=== PATIENT | female | born 1965 | race Caucasian/White ===

== ENCOUNTER 2022-07-27 00:20 | Inpatient (IN) | payer MEDICARE, MEDICAID, SELFPAY ==
[2022-07-27] VITALS (21 sets, daily range): BP systolic 125–196; BP diastolic 68–115; PULSE 24–108; RESP 15–108; TEMP 34.6–37; O2SAT 90–96
--- NOTE | 2022-07-27 00:23 | P.HP_ITS ---
Providers/Chief Complaint Admitting Physician: Cathy Ayala MD Chief Complaint: L hip fx History of Present Illness Estela Reilly is a 56 year old female who recently got treated for pneumonia, has been having recurrent falls, she does have a 24-hour caregiver, she has history of intellectual disability, bipolar disorder, type 2 diabetes, hypothyroidism, transferred from [facility] for left hip fracture. Dr. Porter has accepted the patient and asked hospitalist service to admit. At the time of my evaluation patient is hypertensive, complaining of pain in her left hip, patient is stating that she used 2 L of oxygen. Labs, imaging report reviewed Left intertrochanteric hip fracture Patient has a Marshall catheter in place Review of Systems General: Reports: ROS unobtainable due to medical condition PFSH Acute PFSH: Medical History Bipolar 1 disorder Epilepsy GERD (gastroesophageal reflux disease) Hypothyroidism Intellectual disability Psoriasis Rheumatoid arthritis Type 2 diabetes mellitus Family History Denies family history of CAD (coronary artery disease) Social History Smoking and tobacco status: never smoked Alcohol intake: never Physical Exam Narrative: female, Ecchymosis left periorbital area, left maxillary area No active bleeding Patient is moving her upper extremities Essential tremors Left leg is rotated outwards, sharp Marshall catheter in place Abdomen soft, nondistended S1, S2 Currently on 2 L of oxygen Hypertensive A&P Assessment and plan (1) Hip fracture: Plan Left hip fracture N.p.o. DVT prophylaxis SCDs Opioids and bowel regimen Dr. 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
[2022-07-27] MEDS: hyDRALAzine 20 mg/mL INJ 1 mL 5 MG IVP (01:28)
[2022-07-27] MEDS: HYDROmorphone 1 mg/mL INJ 1 mL 0.4 MG IVP (01:29)
[2022-07-27] MEDS: sodium chloride 0.9% 1,000 ML 75 ML IV ×2 (02:02→14:56)
[2022-07-27] MEDS: morphine IR 15 mg Tablet PO (05:03)
[2022-07-27] MEDS: levothyroxine 100 mcg Tablet PO (05:03)
[2022-07-27 05:23] LABS: Basophils % 0.4 %; Eosinophils # 0.1 10^3/uL (0.0-0.8); Hematocrit 33.7 % (37.0-47.0); Hemoglobin 10.7 g/dL (11.5-15.3); Lymphocytes # 1.3 10^3/uL (0.8-4.8); Lymphocytes % 12.8 %; Mean Corpuscular HGB Conc 31.8 g/dL (30.0-36.0); Mean Corpuscular Hemoglobin 29.7 pg (28.0-34.0); Mean Corpuscular Volume 93.6 fl (81-99); Mean Platelet Volume 9.7 fL (7.4-10.4); Monocytes # 0.4 10^3/uL (0.2-0.9); Monocytes % 4.1 %; Neutrophils # 8.15 10^3/uL (1.8-7.7); Neutrophils % 79.9 %; Nucleated Red Blood Cells % 0 %; Platelet Count 222 10^3/cmm (130-400); Red Cell Distribution Width 12.9 % (12.1-15.1); White Blood Count 10.2 10^3/uL (4.0-10.0)
[2022-07-27 05:47] LABS: Anion Gap 15.4 (5-19); Blood Urea Nitrogen 28 mg/dL (6-20); C Reactive Protein 32.1 mg/L (0.0-4.9); Calcium 9.5 mg/dL (8.5-10.5); Carbon Dioxide 25 mmol/L (22-29); Chloride 106 mmol/L (98-107); Glomerular Filtration Rate 46.5 mL/min (90-130); Glucose 223 mg/dL (65-115); Magnesium 1.7 mg/dL (1.7-2.3); Osmolality Calculated 306 mOsm/kg (285-295); Potassium 4.4 mmol/L (3.5-5.1); Sodium 142 mmol/L (136-145)
[2022-07-27 07:19] LABS: Glucose Point of Care 234 mg/dL (70-110)
[2022-07-27 07:46] LABS: D Dimer 12.23 ug/mIFEU (0-0.59)
--- NOTE | 2022-07-27 07:50 | PM.CONSULT ---
Providers/Reason For Consult Consulting Physician/Specialty*: Louie Porter DO/orthopedic surgery Reason for Consult*: Left displaced intertrochanteric femur fracture Requesting Physician: Dr. Ayala Attending Physician: Cathy Ayala MD History of Present Illness History of Present Illness Estela Reilly is a 56 year old female with some history of recurrent falls. Patient does have a 24-hour caregiver and has a history of intellectual disability as well as bipolar disorder type 2 diabetes hypothyroidism. Patient sustained a fall and a fracture to her left hip she was seen in outside emergency department at [facility] that point in time or institution was contacted for transfer. Patient was then subsequently admitted by the hospitalist service for medical optimization and preoperative clearance for surgery. History is somewhat limited due to patient's intellectual disability however she is able to answer some simple questions. She does complain of left hip pain and denies any pain elsewhere. She does request that I update her family. No other issues at this time. Spoke with brother who is her guardian and states that her baseline is short walks without a walker. She does have a Marshall catheter already in place. She is agreeable on my interaction about getting her hip fixed. Review of Systems General: Reports: ROS unobtainable due to medical condition Medications/Allergies Home Medications Medication Instructions Recorded Confirmed Last Taken Type acetaminophen 325 mg tablet (Pain 325 mg PO Q4H PRN pain or fever 07/27/22 07/27/22 Unknown History Reliever (acetaminophen)) amlodipine 10 mg tablet 10 mg PO DAILY@07/27/22 07/27/22 Unknown History aspirin 325 mg tablet,delayed 325 mg PO DAILY@07/27/22 07/27/22 Unknown History release atorvastatin 20 mg tablet 20 mg PO DAILY@07/27/22 07/27/22 Unknown History azithromycin 500 mg tablet 500 mg PO DAILY@07/27/22 07/27/22 Unknown History carbamazepine 200 mg 200 mg PO BID@07/27/22 07/27/22 Unknown History capsule,extended release [id number] carbamazepine 200 mg 400 mg PO DAILY@07/27/22 07/27/22 Unknown History capsule,extended release [id number] cefdinir 300 mg capsule 300 mg PO BID@,07/27/22 07/27/22 Unknown History clonidine HCl 0.1 mg tablet 0.1 mg PO BID PRN diastolic 07/27/22 07/27/22 Unknown History greater than 100 epinephrine 0.3 mg/0.3 mL 0.3 mg IM Q4H PRN insect stings 07/27/22 07/27/22 Unknown History injection, auto-injector escitalopram oxalate 20 mg tablet 20 mg PO DAILY@07/27/22 07/27/22 Unknown History ferrous sulfate 325 mg (65 mg 325 mg PO BID@07/27/22 07/27/22 Unknown History iron) tablet fluticasone propionate 50 2 spray intranasal DAILY@07/27/22 07/27/22 Unknown History mcg/actuation nasal spray,suspension folic acid 1 mg tablet 1 mg PO DAILY@07/27/22 07/27/22 Unknown History gabapentin 100 mg capsule 200 mg PO BID@,07/27/22 07/27/22 Unknown History gabapentin 300 mg capsule 300 mg PO BEDTIME@07/27/22 07/27/22 Unknown History icosapent ethyl 1 gram capsule 2 g PO BID@07/27/22 07/27/22 Unknown History (Vascepa) isosorbide mononitrate 60 mg 90 mg PO DAILY@07/27/22 07/27/22 Unknown History tablet,extended release 24 hr levocetirizine 5 mg tablet 5 mg PO DAILY@07/27/22 07/27/22 Unknown History levothyroxine 100 mcg tablet 100 mcg PO DAILY@07/27/22 07/27/22 Unknown History losartan 100 mg tablet 100 mg PO DAILY@07/27/22 07/27/22 Unknown History metformin 750 mg tablet,extended 750 mg PO BID@07/27/22 07/27/22 Unknown History release 24 hr mirtazapine 30 mg tablet 30 mg PO BEDTIME@07/27/22 07/27/22 Unknown History omeprazole 40 mg capsule,delayed 40 mg PO DAILY@07/27/22 07/27/22 Unknown History release oxybutynin chloride 10 mg 10 mg PO DAILY@07/27/22 07/27/22 Unknown History tablet,extended release 24 hr polyethylene glycol 3350 17 17 g PO DAILY@07/27/22 07/27/22 Unknown History gram/dose oral powder sennosides 8.6 mg tablet (Senokot) 8.6 mg PO DAILY PRN Constipation 07/27/22 07/27/22 Unknown History sennosides 8.6 mg tablet (Senokot) 17.2 mg PO BEDTIME@20 07/27/22 07/27/22 Unknown History silver sulfadiazine 1 % topical 1 applic topical DAILY PRN Skin 07/27/22 07/27/22 Unknown History cream (SSD) wounds and sores sucralfate 1 gram tablet 1 g PO QID 07/27/22 07/27/22 Unknown History trazodone 50 mg tablet 50 mg PO BEDTIME@20 07/27/22 07/27/22 Unknown History ziprasidone HCl 80 mg capsule 80 mg PO BEDTIME@20 07/27/22 07/27/22 Unknown History Allergies Allergy/AdvReac Type Severity Reaction Status Date / Time acetaminophen Allergy Unknown Verified 07/27/22 01:09 [From Darvocet-N] amoxicillin Allergy Unknown Verified 07/27/22 01:09 bee venom protein (honey bee) Allergy Unknown Verified 07/27/22 01:09 dicyclomine Allergy Unknown Verified 07/27/22 01:09 doxycycline Allergy Unknown Verified 07/27/22 01:09 propoxyphene Allergy Unknown Verified 07/27/22 01:09 strawberry Allergy Unknown Verified 07/27/22 01:10 sulfamethoxazole Allergy Unknown Verified 07/27/22 01:09 [From Bactrim] tetracycline Allergy Unknown Verified 07/27/22 01:09 tomato Allergy Unknown Verified 07/27/22 01:10 trimethoprim [From Bactrim] Allergy Unknown Verified 07/27/22 01:09 Current Medications Generic Name Dose Route Start Last Admin Trade Name Freq PRN Reason Stop Dose Admin Hydromorphone HCl 0.4 mg 07/27/22 00:23 07/27/22 01:29 Hydromorphone 1 Mg/Ml Inj 1 Ml IVP 0.4 mg Q4H PRN Administration severe pain Sodium Chloride 1,000 mls @ 75 mls/hr 07/27/22 00:30 07/27/22 02:02 Sodium Chloride 0.9% IV 75 mls/hr .[id number] SOFIE Administration Levothyroxine Sodium 100 mcg 07/27/22 06:00 07/27/22 05:03 Levothyroxine 100 Mcg Tablet PO 100 mcg QAM SOFIE Administration Morphine Sulfate 15 mg 07/27/22 00:23 07/27/22 05:03 Morphine Ir 15 Mg Tablet PO 15 mg Q6H PRN Administration moderate pain PFSH Acute PFSH: Medical History (Updated 07/27/22 @ 12:40 by Louie Porter DO) Bipolar 1 disorder Epilepsy GERD (gastroesophageal reflux disease) Hypothyroidism Intellectual disability Intertrochanteric fracture of left femur Psoriasis Rheumatoid arthritis Type 2 diabetes mellitus Family History Denies family history of CAD (coronary artery disease) Social History Smoking and tobacco status: never smoked Alcohol intake: never Vitals/I&O/Wt Last Vital Signs Temp 94.3 F L 07/27/22 07:40 Pulse 102 H 07/27/22 07:40 Resp 28 H 07/27/22 07:40 BP 178/82 07/27/22 07:40 Pulse Ox 94 07/27/22 07:40 O2 Del Method 07/27/22 07:40 O2 Flow Rate 2 07/27/22 04:00 07/26/22 07/27/22 07/27/22 22:59 06:59 14:59 Output Total 350 / 350 Balance -350 / -350 Physical Exam Narrative: Examination is limited due to patient's mental condition however she does follow some simple commands Patient has no tenderness to palpation and will actively range her bilateral upper extremity joints as far as shoulders knees wrists and hands Patient holds the left lower extremity shortened and externally rotated. She has pain with logroll and tenderness to palpation of the left hip. No tenderness palpation of the left knee foot or ankle. She will wiggle her toes as well as plantarflex and dorsiflex her ankle she denies that she has sensation intact to the left lower extremity. Distal pulses palpable. She has a negative logroll to the right hip with no tenderness palpation of the right hip knee foot or ankle. She will wiggle her toes and plantarflex dorsiflex ankle to the right lower extremity and not sensation tact of the right lower extremity. Urinary Catheter Management: Marshall: Cath Placed During This Visit: yes Urinary Catheter Date of Insertion: 07/26/22 Data 07/27/22 05:02 07/27/22 05:02 Xray Ortho: My impression: X-rays from an outside facility AP pelvis the left hip as well as the knee reviewed and demonstrate a displaced intertrochanteric femur fracture of the left hip. The left knee shows degenerative joint disease but no acute fracture dislocation. Review of patient's pelvis demonstrates some degenerative changes of the right hip as well as of the left hip no other acute fracture dislocation noted about the pelvis. X-rays full-length femur demonstrate no extension of the subtrochanteric region. A&P Assessment and plan (1) Intertrochanteric fracture of left femur: Plan Nonweightbearing to left lower extremity PT/OT after surgery Hold a.m. anticoagulation will resume Lovenox after surgery N.p.o. since midnight Spoke with guardian about patient's diagnosis and treatment recommendations Internal medicine is primary Labs reviewed Imaging reviewed Plan for OR today for left hip open reduction internal fixation with cephalomedullary nail Had a discussion with patient however our discussion was limited secondary to her disability however she said yes to proceed with surgery to fix her left hip. I then subsequently called patient's guardian who is her brother and had a good long thoughtful discussion about her treatment options for his nonoperative and operative intervention. Operative intervention benefits would be early mobilization as well as pain control. This point detail of the risk benefits complication alternatives to surgical treatment options and at this point time through shared decision making agreed to proceed with left hip open reduction internal fixation with cephalomedullary nail for left intertrochanteric femur fracture. Understand the risks include but not limited to make it better, make it worse, blood clot, heart attack, stroke, on the table, failure of hardware, malunion, nonunion, injury to nerves or vessels. Understanding these risks patient's guardian agrees to proceed with surgical intervention as well. All questions been answered at this time. She will return to the floor postoperatively. Plan for surgery later today. 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
--- NOTE | 2022-07-27 07:55 | XRR_ITS ---
PROCEDURE INFORMATION: Exam: XR Left Femur Exam date and time: 07/27/2022 8:33 AM Age: 56 years old Clinical indication: Condition or disease; Other: Fracture; Patient HX: Pre screening for pre-op for left femur. PT was unable to give HX; Additional info: Left it fracture, preop plannning TECHNIQUE: Imaging protocol: Radiologic exam of the Left femur. Views: 2 views. COMPARISON: No relevant prior studies available. FINDINGS: Bones/joints: There is a comminuted intertrochanteric fracture of the left femur with varus deformity. Soft tissues: Unremarkable. XR/XR femur LT min 2V* [id number] IMPRESSION: Comminuted intertrochanteric fracture.
--- NOTE | 2022-07-27 08:55 | PC.PHAR ---
Addendum entered by Payton Owusu 07/27/22 09:57: pt has 24 hour caregiver from [employer] the [employer] medications entered are meds from the pts mar Original Note: renate gan [phone] states he will fax med list
[2022-07-27] MEDS: amlodipine 10 mg Tablet PO (09:05)
[2022-07-27] MEDS: hyDRALAzine 10 mg Tablet PO ×3 (09:05→23:25)
--- NOTE | 2022-07-27 09:43 | XR_ITS ---
WS: [id number] XR chest 1V portable [id number] REASON FOR EXAM: sob FINDINGS: Significant tortuosity and ectasia of the thoracic aorta possibly with mild aneurysmal dilatation of the ascending aorta/arch. The heart is mildly enlarged. No acute pulmonary parenchymal or pleural abnormality is identified. XR/XR chest 1V portable [id number] IMPRESSION: Tortuosity and ectasia of the thoracic aorta as above. No acute lung abnormalit y.
--- NOTE | 2022-07-27 09:44 | USCV_ITS ---
Tommie Estela Age: 56 Gender: F : 1965 Exam Date: 07/27/2022 10:17 Ordering Phys: Zachary Mays MD Technologist: Rocky Botello [place] [facility] [place]: bed stasis r/0 dvt PROCEDURES: The venous duplex Doppler examination of both lower extremities was performed in the standard fashion. The following venous structures were evaluated: common femoral vein, profunda vein, proximal portion of the greater saphenous vein, superficial femoral vein, and the popliteal vein. In addition, the posterior tibial and peroneal trunk were evaluated. FINDINGS: Normal 2-D Doppler and augmentation and compressibility throughout the lower extremity venous structures. Additional imaging through the proximal calf veins also reveals no thrombus. Limited evaluation of the greater saphenous vein is patent with no thrombus.. CONCLUSIONS No evidence of right lower extremity DVT. No evidence of left lower extremity DVT. Paulie Wang MD (Electronically Signed) Final Date: 27 July 2022 14:29 S
--- NOTE | 2022-07-27 10:14 | CT_ITS ---
WS: [id number] CT HEAD TECHNIQUE: Noncontrast CT of the head obtained from the skullbase to the vertex. CLINICAL INFORMATION: Fall COMPARISON: None. DLP: 993.[address] scans at [facility] use at least one of these dose optimization techniques: automated e xposure control; mA and/or kV adjustment per patient size (includes targeted exams where dose is matc hed to clinical indication); or iterative reconstruction. FINDINGS: No evidence of intracranial hemorrhage or mass effect. Ventricular system and basal cisterns are beasley nt. Mild small vessel changes with moderate parenchymal volume loss. No extra-axial fluid collections . No evidence of mass or mass effect. Small chronic lacunar infarct LEFT cerebellum. Fluid in the frontal sinuses and ethmoid air cells with opacification the ethmoid air cells compatibl e with sinusitis. Secretions within the LEFT sphenoid sinus. Mastoid air cells are well aerated. Soft tissue edema overlying the LEFT lateral orbit. CT/CT head wo con* [id number] IMPRESSION: 1. No evidence of intracranial hemorrhage or mass effect. 2. Mild small vessel changes with moderate parenchymal volume loss. 3. Mild soft tissue edema overlying the LEFT lateral orbit. 4. Paranasal sinusitis. 5. No acute intracranial findings.
[2022-07-27 10:20] LABS: Iron 35 ug/dL (37-145); Percent Saturation 17.7 % (20-50); Total Iron Binding Capacity 197 mcg/dl; Unsaturated Iron Binding 162 ug/dL (112-347)
[2022-07-27 10:38] LABS: Thyroid Stimulating Hormone 4.92 uIU/mL (0.27-4.20); Vitamin B12 463 pg/mL (232-1245)
[2022-07-27] MEDS: carBAMazepine 200 mg Tablet PO (10:38)
[2022-07-27 11:32] LABS: Glucose Point of Care 230 mg/dL (70-110)
[2022-07-27] MEDS: carBAMazepine XR (12 HR) 200 mg Tablet 400 MG PO ×2 (12:49→18:26)
[2022-07-27] MEDS: sucralfate 1 gm Tablet PO ×3 (12:49→23:26)
--- NOTE | 2022-07-27 12:54 | P.MISC_ITS ---
Miscellaneous Note Purpose of Documentation: Cross coverage note. Note: Transfer to [facility] overnight. H&P and labs appreciated. On examination laying comfortably in bed. Patient has significant hematoma around left eye. Patient seems to be at her baseline mentation. Denies any nausea, vomiting, headache. Blood pressure seems to be on a higher side. Plan: D-dimer seem to be elevated. Patient is on room air. Low suspicion of PE. Could be secondary to hip fracture with that D-dimer is elevated. Check lower limb Dopplers. Anticoagulation as per orthopedic team. Check chest x-ray, CT head. Restart home medications including aspirin, statin, carbamazepine, Lexapro, iron,, Protonix, Carafate, gabapentin, Imdur, ziprasidone. Goal blood pressure less than 140/90 mmHg Continue with home dose of amlodipine, Imdur. Holding off on losartan given possible mild ROSALEE. Switch to hydralazine 10 mg 3 times daily on admission. We will continue to monitor blood pressures and uptitrate accordingly. Continue with IV fluids with normal saline at 75 cc/h. Medical reconciliation done for nephrotoxic drugs. Repeat BMP in AM.
[2022-07-27 13:40] LABS: Potassium, Radom Urine 26 mmol/L; Urine Random Chloride 153 mmol/L; Urine Random Sodium 158 mmol/L
[2022-07-27 13:55] LABS: Add Urine Microscopic? YES; Bilirubin Urine Neg (Negative); Blood Urine Neg (Negative); Glucose Urine UA 1+ (Normal); Ketones Urine Negative (Negative); Leukocyte Esterase Urine Negative (Negative); Nitrate Urine Negative (Negative); Protein Urine 1+ (Negative); Urine Appearance Clear (CLEAR); Urine Color Yellow (Yellow); Urobilinogen Urine Neg (Negative); pH Urine 7 (5-7)
[2022-07-27 13:56] LABS: Add Urine Culture? No; Amorphous Sediment Urine TRACE /hpf
[2022-07-27] MEDS: isosorbide mononitrate ER 60 mg Tablet 90 MG PO (14:40)
[2022-07-27] MEDS: HYDROcodone-acetaminophen 5-325 mg Tablet 1 TAB PO (14:43)
--- NOTE | 2022-07-27 15:42 | ANES.PREANE2 ---
Pre-Anesthetic Assessment Height/Weight: Temp Pulse Resp BP Pulse Ox O2 Del Method O2 Flow Rate 98.2 F 97 28 H 182/69 96 2 07/27/22 11:51 07/27/22 11:51 07/27/22 11:51 07/27/22 11:51 07/27/22 11:51 07/27/22 11:51 07/27/22 09:21 Preop Diagnosis: Left displaced intertrochanteric femur fracture Operation Date: 07/27/22 16:00 Proposed Procedures p Trochanteric Femoral Nail(Left) - Louie Hamlin, DO Familial anesthetic complications: None Exam alert, clear to auscultation bilaterally and regular rate & rhythm Pulmonary wears 2 L NC, recent pneumonia CV/HEM Hypertension GI Gastroesophageal Reflux Disease Metabolic Diabetes Mellitus, Hyperlipidemia and Thyroid Disease [facility] [place] Rheumatoid Arthritis Neuropsych Seizure Anesthetic Plan ASA status: 3 Anesthesia: General Medications/Allergies Home Medications Medication Instructions Recorded Confirmed Last Taken Type acetaminophen 325 mg tablet (Pain 325 mg PO Q4H PRN pain or fever 07/27/22 07/27/22 Unknown History Reliever (acetaminophen)) amlodipine 10 mg tablet 10 mg PO DAILY@07/27/22 07/27/22 Unknown History aspirin 325 mg tablet,delayed 325 mg PO DAILY@07/27/22 07/27/22 Unknown History release atorvastatin 20 mg tablet 20 mg PO DAILY@07/27/22 07/27/22 Unknown History azithromycin 500 mg tablet 500 mg PO DAILY@07/27/22 07/27/22 Unknown History carbamazepine 200 mg 200 mg PO BID@07/27/22 07/27/22 Unknown History capsule,extended release [id number] carbamazepine 200 mg 400 mg PO DAILY@07/27/22 07/27/22 Unknown History capsule,extended release [id number] cefdinir 300 mg capsule 300 mg PO BID@,07/27/22 07/27/22 Unknown History clonidine HCl 0.1 mg tablet 0.1 mg PO BID PRN diastolic 07/27/22 07/27/22 Unknown History greater than 100 epinephrine 0.3 mg/0.3 mL 0.3 mg IM Q4H PRN insect stings 07/27/22 07/27/22 Unknown History injection, auto-injector escitalopram oxalate 20 mg tablet 20 mg PO DAILY@07/27/22 07/27/22 Unknown History ferrous sulfate 325 mg (65 mg 325 mg PO BID@07/27/22 07/27/22 Unknown History iron) tablet fluticasone propionate 50 2 spray intranasal DAILY@07/27/22 07/27/22 Unknown History mcg/actuation nasal spray,suspension folic acid 1 mg tablet 1 mg PO DAILY@07/27/22 07/27/22 Unknown History gabapentin 100 mg capsule 200 mg PO BID@07/27/22 07/27/22 Unknown History gabapentin 300 mg capsule 300 mg PO BEDTIME@07/27/22 07/27/22 Unknown History icosapent ethyl 1 gram capsule 2 g PO BID@,07/27/22 07/27/22 Unknown History (Vascepa) isosorbide mononitrate 60 mg 90 mg PO DAILY@07/27/22 07/27/22 Unknown History tablet,extended release 24 hr levocetirizine 5 mg tablet 5 mg PO DAILY@07/27/22 07/27/22 Unknown History levothyroxine 100 mcg tablet 100 mcg PO DAILY@07/27/22 07/27/22 Unknown History losartan 100 mg tablet 100 mg PO DAILY@07/27/22 07/27/22 Unknown History metformin 750 mg tablet,extended 750 mg PO BID@07/27/22 07/27/22 Unknown History release 24 hr mirtazapine 30 mg tablet 30 mg PO BEDTIME@07/27/22 07/27/22 Unknown History omeprazole 40 mg capsule,delayed 40 mg PO DAILY@07/27/22 07/27/22 Unknown History release oxybutynin chloride 10 mg 10 mg PO DAILY@07/27/22 07/27/22 Unknown History tablet,extended release 24 hr polyethylene glycol 3350 17 17 g PO DAILY@07/27/22 07/27/22 Unknown History gram/dose oral powder sennosides 8.6 mg tablet (Senokot) 8.6 mg PO DAILY PRN Constipation 07/27/22 07/27/22 Unknown History sennosides 8.6 mg tablet (Senokot) 17.2 mg PO BEDTIME@07/27/22 07/27/22 Unknown History silver sulfadiazine 1 % topical 1 applic topical DAILY PRN Skin 07/27/22 07/27/22 Unknown History cream (SSD) wounds and sores sucralfate 1 gram tablet 1 g PO QID 07/27/22 07/27/22 Unknown History trazodone 50 mg tablet 50 mg PO BEDTIME@20 07/27/22 07/27/22 Unknown History ziprasidone HCl 80 mg capsule 80 mg PO BEDTIME@20 07/27/22 07/27/22 Unknown History Allergies Allergy/AdvReac Type Severity Reaction Status Date / Time acetaminophen Allergy Unknown Verified 07/27/22 01:09 [From Darvocet-N] amoxicillin Allergy Unknown Verified 07/27/22 01:09 bee venom protein (honey bee) Allergy Unknown Verified 07/27/22 01:09 dicyclomine Allergy Unknown Verified 07/27/22 01:09 doxycycline Allergy Unknown Verified 07/27/22 01:09 propoxyphene Allergy Unknown Verified 07/27/22 01:09 strawberry Allergy Unknown Verified 07/27/22 01:10 sulfamethoxazole Allergy Unknown Verified 07/27/22 01:09 [From Bactrim] tetracycline Allergy Unknown Verified 07/27/22 01:09 tomato Allergy Unknown Verified 07/27/22 01:10 trimethoprim [From Bactrim] Allergy Unknown Verified 07/27/22 01:09 Current Medications Generic Name Dose Route Start Last Admin Trade Name Freq PRN Reason Stop Dose Admin Hydrocodone Bitart/Acetaminophen 1 tab 07/27/22 09:45 07/27/22 14:43 Hydrocodone-Acetaminophen 5-325 Mg Tablet PO 1 tab Q6H PRN Administration MODERATE PAIN Amlodipine Besylate 10 mg 07/27/22 09:00 07/27/22 09:05 Amlodipine 10 Mg Tablet PO 10 mg DAILY SOFIE Administration Carbamazepine 200 mg 07/27/22 09:00 07/27/22 10:38 Carbamazepine 200 Mg Tablet PO 200 mg BID SOFIE Administration Carbamazepine 400 mg 07/27/22 12:00 07/27/22 12:49 Carbamazepine Xr (12 Hr) 200 Mg Tablet PO 400 mg DAILY@12 SOFIE Administration Hydralazine HCl 10 mg 07/27/22 09:00 07/27/22 14:41 Hydralazine 10 Mg Tablet PO 10 mg TID SOFIE Administration Sodium Chloride 1,000 mls @ 75 mls/hr 07/27/22 00:30 07/27/22 14:56 Sodium Chloride 0.9% IV 75 mls/hr .[id number] SOFIE Administration Isosorbide Mononitrate 90 mg 07/27/22 13:00 07/27/22 14:40 Isosorbide Mononitrate Er 60 Mg Tablet PO 90 mg DAILY@07 SOFIE Administration Levothyroxine Sodium 100 mcg 07/27/22 06:00 07/27/22 05:03 Levothyroxine 100 Mcg Tablet PO 100 mcg QAM SOFIE Administration Sucralfate 1 gm 07/27/22 13:00 07/27/22 12:49 Sucralfate 1 Gm Tablet PO 1 gm QID SOFIE Administration PFSH Anesthesia Medical History (Updated 07/27/22 @ 12:40 by Louie Porter DO) Bipolar 1 disorder Epilepsy GERD (gastroesophageal reflux disease) Hypothyroidism Intellectual disability Intertrochanteric fracture of left femur Psoriasis Rheumatoid arthritis Type 2 diabetes mellitus Family History Denies family history of CAD (coronary artery disease) Social History Smoking and tobacco status: never smoked Alcohol intake: never Data Anesthesia 07/27/22 05:02 07/27/22 05:02 Short CBC 07/27/22 Range/Units 05:02 WBC 10.2 H (4.0-10.0) 10^3/uL Hgb 10.7 L (11.5-15.3) g/dL Hct 33.7 L (37.0-47.0) % MCV 93.6 (81-99) fl Plt Count 222 (130-400) 10^3/cmm Neut % (Auto) 79.9 % Neut # (Auto) 8.15 H (1.8-7.7) 10^3/uL BMP 07/27/22 05:02 Sodium 142 Potassium 4.4 Chloride 106 Carbon Dioxide 25 BUN 28 H Creatinine 1.2 H Glucose 223 H Calcium 9.5 Urine 07/27/22 Range/Units 13:00 Urine Color Yellow (Yellow) Urine Appearance Clear (CLEAR) Urine pH 7 (5-7) Ur Specific [place] 1.010 (1.005-1.030) Urine Protein 1+ H (Negative) Urine Glucose (UA) 1+ H (Normal) Urine Ketones Negative (Negative) Urine Nitrate Negative (Negative) Urine Bilirubin Neg (Negative) Ur Leukocyte Esterase Negative (Negative) Urine RBC None (0-2) /hpf Urine WBC None (0-5) /hpf Coags 07/27/22 07/27/22 05:02 07:13 D-Dimer 12.23 H C-Reactive Protein 32.1 H Cardiac Studies: No Data to Display
--- NOTE | 2022-07-27 15:45 | W.PM.OPSUD ---
Surgery/Procedure H&P Update DATE OF PROCEDURE: July 27, 2022 DATE H&P PERFORMED: 07/27/22 CHANGES TO PREVIOUS DOCUMENTATION: None. Consent was obtained from brother who is her guardian. This was obtained over the phone. Brother as well as patient agreeable to proceed with surgical intervention understanding risk benefits complication alternatives to treatment option agreed to proceed. PREOP DIAGNOSIS: Left displaced intertrochanteric femur fracture PRIMARY INDICATION FOR PROCEDURE: Left displaced intertrochanteric femur fracture PLANNED PROCEDURE: Operation Date: 07/27/22 16:00 Proposed Procedures p Trochanteric Femoral Nail(Left) - Louie Porter DO
[2022-07-27] MEDS: clindamycin 600 MG/50 ML PREMIX 100 MG IV (15:55)
[2022-07-27] MEDS: sodium chloride 0.9% 1,000 ML 30 ML IV (15:59)
--- NOTE | 2022-07-27 17:16 | XR_ITS ---
WS: [id number] XR hip LT 1V wo/[place] pel [id number] REASON FOR EXAM: OR PICS FINDINGS: Short intramedullary pepe and long nail fixation of intertrochanteric fracture of the left hip. Fracture fragments and surgical appliances are in good position and alignment. XR/XR hip LT 1V wo/w pel [id number] IMPRESSION: Postoperative left hip fracture with fixation and no abnormality.
--- NOTE | 2022-07-27 17:25 | PM.OP2 ---
Brief Operative Note Date of procedure: 07/27/22 Pre-op diagnosis: Left intertrochanteric femur fracture Post-op diagnosis: same Procedure Done: Left intertrochanteric femur fracture ORIF with cephalomedullary nail Surgeon: Louie Porter Estimated blood loss (mL): 125 Complications: None Post-op Plan: Patient taken to PACU in stable condition. Patient recovered in PACU and returned to the floor. Patient to receive return to floor orders for weightbearing as tolerated to the left lower extremity DVT prophylaxis and pain control. Internal medicine will remain his primary. PT/OT. Silverlon dressing on in place to remain in place unless saturated. Orthopedics will continue to follow postoperatively on the floor. Condition: stable Disposition: floor Coding Level of Care Code Acute Md Allergy Immunology for Daily Rodriguez
--- NOTE | 2022-07-27 17:27 | P.PCN_ITS ---
PACU note Narrative: Patient taken the PACU in stable condition. Patient recovering well. Will return to the floor. Patient still sedated from anesthesia unable to follow commands for motor and sensory evaluation and limited secondary to patient's baseline mental status. Will reevaluate tomorrow morning. Dressing o n in place and clean dry and intact Exam: unarousable (From anesthesia) Disposition: back to floor
--- NOTE | 2022-07-27 17:28 | P.OP_ITS ---
Operative Report Date of procedure: July 27, 2022 Pre-op diagnosis: Preop Diagnosis Left displaced intertrochanteric femur fracture Post-op diagnosis: Left displaced intertrochanteric femur fracture Procedure done: Left intertrochanteric femur fracture ORIF with cephalomedullary nail Implants: [place] gamma nail short 10 mm x 170 mm x 125 degree Lag screw 10.5 mm x 115 mm Distal locking screw 5 mm x 32.5 mm Surgeon: Louie Porter DO Estimated blood loss: 125 mm IV fluids: See anesthesia record Urine output: See anesthesia record Complications: None Findings: See operative report narrative Condition: stable Disposition: floor Brief History: Patient sustained a ground-level fall and was found to have a comminuted fracture of the left intertrochanteric region of the left hip. Patient does have intellectual disability and history is limited from patient as obtained by patient's brother who is her POA as well as from the emergency department physician and hospitalist. She was subsequently transferred from an outside facility as they did not have orthopedic coverage and brought to our facility for treatment and recommendations by the orthopedic. Internal medicine was admitted as primary and patient was admitted for medical management as well as preoperative clearance when she was medically optimized for surgical intervention plan was to proceed with surgery. She was seen evaluated by myself she was found to have a displaced left intertrochanteric femur fracture talked about treatment options as far as nonoperative and operative intervention. Ultimately this point time would recommend left hip open reduction internal fixation with cephalomedullary nail. This would benefit patient from the standpoint of early weightbearing as well as pain control. I talked about this in detail with her POA her brother who understands and would like to proceed with surgical intervention. All questions been answered at this time. Consent was obtained over the phone with her brother. Brother understands and agrees to proceed with current plan. All questions answered. Procedure: Patient seen evaluated in the preoperative holding area. Consent was reviewed and signed over the phone with patient's brother. Correct extremity was then marked. Once cleared by anesthesia in the hospitalist team patient was taken back to the operative suite. Patient underwent anesthesia per the anesthesia department. Once appropriately anesthetized she was placed on a fracture [place] table. Patient was appropriately secured to the bed. All bony prominences were well-padded. At this point time patient received appropriate preoperative antibiotics. Final timeout was performed. Prior to beginning surgery a standard closed reduction maneuver was placed on the [place] table and large C-arm was brought in. After performing a closed reduction maneuver there was able to achieve satisfactory reduction of left intertrochanteric femur fracture. Fracture site did not extend into the subtrochanteric region as result plan was for a short nail. Patient did have a slightly narrower canal and plan was for flexible reamers just to accommodate patient's nail size and canal. This point time the left lower extremity was then prepped and draped in standard orthopedic fashion. A standard longitudinal incision was made just proximal to the greater trochanter roughly 4 cm in length sharp scalpel vision was made through skin and subcutaneous tissue. I then utilized a blunt Landis to split her fascia and mobilized directly down to the greater trochanter. I then inserted my starting guidewire which was placed in center center position and advanced to the level lesser trochanter. This was confirmed to be in center center position on AP and lateral imaging. Once this was done I then introduced my opening reamer which was then subsequently placed and then I inserted my long ball-tipped guidewire. Given she had a narrow isthmus I sequentially started with a 9 mm reamer and reamed up to a 12 mm reamer and subsequently elected for a 10 mm nail by 170 mm x 125 degree. At this point time the nail was then loaded onto the IMRSV gamma trochanteric nail guide. This was placed over the ball-tipped guidewire and once placed within the canal this was then removed and the setscrew was then gently placed. The nail was then impacted to appropriate depth patient did have a narrow neck. At this point time I then inserted my lag screw guide and subsequently made a small incision through skin and subcutaneous tissue splitting the IT band longitudinally and the guide was placed directly onto bone. Next I then subsequently placed the guidewire in center center position in the head with an appropriate tip to apex distance this was confirmed with multiple orthogonal images. Once I was satisfied with my planned lag screw placement I then measured which was 115. I then set my cannulated drill 210 subsequently reamed this into the head at appropriate depth and did feel as though this would accommodate for 115 which was then set to 115 and further advance with an excellent tip to apex distance. I then had my rep open the 10.5 mm x 115 mm lag screw which was then opened on the back table and subsequently screwed into place over my cannulated drill guide. This was placed with excellent tip to apex distance. Next I then utilized the compressing device and subsequently compressed my fracture after I let off traction. This had excellent fracture compression and opposition and closing down to my fracture line. Next I then locked the nail setting my setscrew. This point time the guidewire as well as the sleeve was then removed. Next I plan for statically locking the nail distally. This triple sleeve was then placed a small stab incision was made blunt dissection directly down to bone and the guide sleeve was placed and locked directly onto the bone. I then inserted the drill bit and subsequently drilled bicortically measured appropriate length screw and then p laced a 32.5 mm distal interlocking screw and had excellent fixation was appropriate length. This point time is completed my construct I remove the outer jig and took final images of AP and lateral of the left intertrochanteric femur fracture which showed stable reduction and stable fixation. Wound was then thoroughly irrigated. Hemostasis was maintained with electrocautery. I then once again thoroughly irrigated the incisions and then subsequently closed in layered fashion of 0 Vicryl 2-0 Vicryl and sabra. Silverlon dressings applied. Patient was then awakened from anesthesia transported onto the hospital bed and taken to PACU in stable condition. Patient tolerated procedure without complications. Disposition: Patient taken to PACU in stable condition will receive postoperative x-rays on the floor tomorrow. Patient recovering well. Patient receive appropriate discharge structure as well as pain medication and DVT prophylaxis postoperatively. She will receive postoperative antibiotics for surgical prophylaxis as well as DVT prophylaxis and TXA postoperatively. She will work with PT/OT and be weightbearing as tolerated left lower extremity may change dressings as needed if needed they become saturated. She will see me in office in 2 weeks. Patients brother understands and agrees with current plan. All questions answered.
[2022-07-27] MEDS: iron polysaccharide complex 150 mg Capsule PO (18:19)
[2022-07-27] MEDS: sennosides-docusate Tablet 2 TAB PO (18:19)
[2022-07-27] MEDS: calcium carb-vit d 600mg/400unit 1 Tablet 1 EACH PO (18:19)
[2022-07-27] MEDS: mupirocin oint 22 gm 1 APPLIC NASAL (18:20)
[2022-07-27 19:01] LABS: Folate Level > 20.0 ng/mL (4.8-37.3)
[2022-07-27] MEDS: ferrous gluconate 324 mg Tablet PO (19:23)
[2022-07-27 22:27] LABS: Glucose Point of Care 298 mg/dL (70-110)
[2022-07-27] MEDS: gabapentin 300 mg Capsule PO (23:23)
[2022-07-27] MEDS: atorvastatin 40 mg Tablet 20 MG PO (23:23)
[2022-07-27] MEDS: ziprasidone hcl 40 mg Capsule 80 MG PO (23:24)
[2022-07-27] MEDS: chlorhexidine gluconate 0.12% Btl 473 mL 30 ML MUCOUS MEM (23:26)
[2022-07-27] MEDS: clindamycin 900 MG/50 ML PREMIX 100 MG IV (23:27)
[2022-07-28] VITALS (8 sets, daily range): BP systolic 131–168; BP diastolic 72–90; PULSE 80–109; RESP 16–20; TEMP 36.4–37.4; O2SAT 93–100
[2022-07-28 02:13] LABS: Basophils % 0.4 %; Eosinophils # 0.2 10^3/uL (0.0-0.8); Eosinophils % 2.1 %; Hematocrit 25.9 % (37.0-47.0); Hemoglobin 8.2 g/dL (11.5-15.3); Lymphocytes # 1.1 10^3/uL (0.8-4.8); Lymphocytes % 13.9 %; Mean Corpuscular HGB Conc 31.7 g/dL (30.0-36.0); Mean Corpuscular Hemoglobin 29.9 pg (28.0-34.0); Mean Corpuscular Volume 94.5 fl (81-99); Mean Platelet Volume 9.3 fL (7.4-10.4); Monocytes # 0.5 10^3/uL (0.2-0.9); Monocytes % 6.7 %; Neutrophils % 74.8 %; Nucleated Red Blood Cells % 0 %; Platelet Count 178 10^3/cmm (130-400); Red Blood Count 2.74 10^6/uL (4.1-5.3); Red Cell Distribution Width 12.8 % (12.1-15.1)
[2022-07-28 02:29] LABS: Estmated Average Glucose 120; Hemoglobin A1C 5.8 % (4.0-6.0)
[2022-07-28 02:39] LABS: Alanine Aminotransferase 14 U/L (0-33); Albumin Level 3.3 g/dL (3.5-5.2); Alkaline Phosphatase 67 U/L (35-105); Anion Gap 12.2 (5-19); Aspartate Amino Transferase 9 U/L (0-32); Blood Urea Nitrogen 25 mg/dL (6-20); Calcium 8.9 mg/dL (8.5-10.5); Carbon Dioxide 26 mmol/L (22-29); Chloride 109 mmol/L (98-107); Chol HDL Ratio 4.72 mg/dL (0.0-4.40); Cholesterol 118 mg/dL (0-200); Globulin 2.1 g/dL (1.3-4.6); Glomerular Filtration Rate 46.5 mL/min (90-130); Glucose 245 mg/dL (65-115); HDL Cholesterol 25 mg/dL (60-100); LDL Cholesterol Calculated 57 mg/dL (50-129); Osmolality Calculated 309 mOsm/kg (285-295); Potassium 4.2 mmol/L (3.5-5.1); Sodium 143 mmol/L (136-145); Total Bilirubin 0.2 mg/dL (0.15-1.2); Total Protein 5.4 g/dL (6.6-8.7); Triglycerides 181 mg/dL (0-150); VLDL Cholestrol Calculation 36 mg/dL (0-30)
[2022-07-28] MEDS: enoxaparin 30 mg/0.3 mL Syringe SUBCUT (05:53)
[2022-07-28] MEDS: levothyroxine 100 mcg Tablet PO (05:53)
[2022-07-28] MEDS: isosorbide mononitrate ER 60 mg Tablet 90 MG PO (05:53)
[2022-07-28] MEDS: HYDROcodone-acetaminophen 5-325 mg Tablet 1 TAB PO (06:30)
[2022-07-28 06:42] LABS: Glucose Point of Care 234 mg/dL (70-110)
--- NOTE | 2022-07-28 07:00 | XRR_ITS ---
PROCEDURE INFORMATION: Exam: XR Left Hip Exam date and time: 07/28/2022 7:06 AM Age: 56 years old Clinical indication: Device placement; Other: Orif left hip; Prior surgery; Surgery date: Post-operative (0-2 days); Additional info: Postop orif left hip, please include ap and lateral left hip including the distal TECHNIQUE: Imaging protocol: Radiologic exam of the Left hip. Views: 2 or 3 views hip with pelvis when performed. AP 1 view pelvis with 2 views hip COMPARISON: OT XR hip LT 1V wo/[place] [id number] 07/27/2022 4:08 PM FINDINGS: Bones/joints: Postsurgical changes are seen status post dynamic hip screw fixation of a comminuted left intratrochanteric femoral fracture. Single distal anchoring screw is seen in the proximal femoral diaphysis. There is expected postsurgical near anatomic alignment of the fracture fragments. There is unchanged appearance in correlation with the postsurgical radiograph dated 07/27/2022. Moderate left hip degenerative changes are seen. Moderate left sacroiliac joint degenerative changes are seen. Soft tissues: Soft tissue gas and swelling is seen in the hip region, related to the recent surgery. Superficial skin sabra are seen, related to the recent surgery. Notes: Followup radiographs may be obtained for complete assessment. XR/XR hip LT 2-3V wo/w pel* [id number] IMPRESSION: Postsurgical changes of the hip status post left proximal femoral dynamic hip screw fixation, as noted above, as noted above.
[2022-07-28] MEDS: cholecalciferol (vitamin D3) 1,000 unit Tablet 1000 UNIT PO (08:52)
[2022-07-28] MEDS: hyDRALAzine 10 mg Tablet PO ×3 (08:53→20:14)
[2022-07-28] MEDS: iron polysaccharide complex 150 mg Capsule PO ×2 (08:53→17:08)
[2022-07-28] MEDS: amlodipine 10 mg Tablet PO (08:53)
[2022-07-28] MEDS: calcium carb-vit d 600mg/400unit 1 Tablet 1 EACH PO ×2 (08:53→17:07)
[2022-07-28] MEDS: sennosides-docusate Tablet 2 TAB PO ×2 (08:53→17:08)
[2022-07-28] MEDS: multivitamin therapeutic Tablet 1 TAB PO (08:53)
[2022-07-28] MEDS: pantoprazole DR 40 mg Tablet PO (08:53)
[2022-07-28] MEDS: sodium chloride 0.9% 1,000 ML 75 ML IV ×2 (09:02→22:48)
[2022-07-28] MEDS: clindamycin 900 MG/50 ML PREMIX 100 MG IV ×2 (09:04→17:15)
[2022-07-28] MEDS: mupirocin oint 22 gm 1 APPLIC NASAL ×2 (09:07→18:15)
[2022-07-28] MEDS: ferrous gluconate 324 mg Tablet PO ×2 (09:07→18:20)
[2022-07-28] MEDS: carBAMazepine 200 mg Tablet PO (09:09)
[2022-07-28] MEDS: chlorhexidine gluconate 0.12% Btl 473 mL 30 ML MUCOUS MEM ×3 (09:10→20:15)
--- NOTE | 2022-07-28 10:36 | PC.CHAP ---
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 [] Patient/Family/Request visit [] Outpatient visit [] Follow-up visit [] Physician referral [] Code/Alert [x] Routine visit [] Staff referral [] Actively dying [] Patient sleeping [] Family support [] [] Out of room [] Palliative care [] [x] Receiving care in room [] Pre-surgical visit [] Trauma [] Long length of stay [] ICU visit [] Other: Relational/Emotional Strength [] Patient feels connected with others/family/visitors/staff [] Distress [] Loneliness/isolation [] Abandonment Spirituality of Patient [] Person of Monet [] Attends Yazidism of their Monet [] Believes in Prayer [] Reads Bible or Religion materials [] There are Spiritual issues to be addressed Microwave Engineer Interventions [x] Prayer [] Active listening [] Non-anxious presence [] Spiritual/emotional support [] Crisis/trauma care [] Spiritual counseling [] Bereavement support [] Provided bereavement packet [] Provided Bible/devotional materials [] Provided toy/stuffed animal, coloring book to patient or family member [] Provided Communion [] Anointing/[place] [] Salvation [] Completed spiritual assessment [] Other: Impact on Illness or Injury [] Angry [] Fearful [] Anxious [] Often cries [] Exhaustion [] Unable to work [] Unable to attend jew [] Unable to walk/stand [] Unable to read [] Unable to drive [] Unable to eat/drink [] Unable to sleep [] Unable to be with family [] Patient intubated [] Other: Summary Time spent with patient
[2022-07-28 12:20] LABS: Glucose Point of Care 382 mg/dL (70-110)
[2022-07-28 12:28] LABS: T3 Free 1.7 PG/ML (2.0-4.4)
[2022-07-28] MEDS: gabapentin 100 mg Capsule 200 MG PO (12:48)
[2022-07-28] MEDS: sucralfate 1 gm Tablet PO ×3 (12:48→20:14)
[2022-07-28] MEDS: insulin lispro 100 unit/1 mL SUBCUT ×2 (13:07→17:28)
--- NOTE | 2022-07-28 13:59 | PM.PN ---
Subjective Subjective: Underwent ORIF yesterday. Tolerated procedure well. Today morning seen sitting up in recliner. Worked with physical therapy. Denies any nausea, vomiting, headache. Seems to be at her baseline mentation. Vitals/I&O/Wt Last Vital Signs Temp 97.6 F 07/28/22 10:58 Pulse 80 07/28/22 10:58 Resp 17 07/28/22 10:58 BP 131/72 07/28/22 10:58 Pulse Ox 93 07/28/22 10:58 O2 Del Method 07/28/22 10:58 O2 Flow Rate 3 07/28/22 08:19 07/27/22 07/28/22 07/28/22 22:59 06:59 14:59 Intake Total 1417.5 / 2385.0 50 / 2435.0 1022.5 / 1022.5 Output Total 800 / 800 400 / 1200 Balance 617.5 / 1585.0 -350 / 1235.0 1022.5 / 1022.5 Physical Exam Narrative: General: No acute distress, awake and alert, not following commands, GCS: E4 M5 V5, sitting up in recliner, ecchymosis present around left eye HEENT: PERRLA, pupils bilaterally equal and reactive Chest: Bilateral bronchial breath sounds with occasional rhonchi over the lung [place] CVS: S1-S2 regular, no murmurs, no tachycardia, no gallops, no rubs Abdomen: Soft, nontender, no organomegaly, bowel sounds present, morbidly obese Neuro: No focal deficits, no facial deformity, AO x3, power 5/5 in all limbs Urinary Catheter Management: Marshall: Cath Placed During This Visit: yes Reason for Continuing Indwelling Catheter: Acute Urinary Retention or Obstruction Urinary Catheter Date of Insertion: 07/26/22 Data 07/28/22 01:56 07/28/22 01:56 A&P Assessment and plan (1) Intertrochanteric fracture of left femur: Post-ORIF day 1. Physical therapy, anticoagulation as per primary team. Monitor hemoglobin. Repeat hemoglobin in afternoon. If below 7 will transfuse. Start on oral iron supplementation. Appreciate vitamin B12 folate levels. (2) Epilepsy: Continue home dose of carbamazepine. (3) Intellectual disability: At baseline mentation. Continue home dose of Lexapro, gabapentin, mirtazapine. (4) Hypertension: Goal blood pressure less than 140/90 mmHg. Takes multiple antihypertensives at home including amlodipine 10 mg daily, isosorbide mononitrate 90 mg daily, losartan 100 mg daily. Continue all except losartan given mild ROSALEE. Continue with hydralazine while inpatient. If creatinine remains stable can discharge on home dose of losartan. (5) Type 2 diabetes mellitus: A1c 5.8. Continues to have multiple Accu-Cheks over 200. Patient is not on any dextrose containing fluids. Switch to carb consistent diet. Started on insulin sliding scale low-dose protocol. Repeat A1c in the morning. Plan ROSALEE versus CKD: Creatinine on admission 1.2. No baseline creatinine. Repeat creatinine again 1.2. For now hold off on losartan. Creatinine remains stable can discharge back home on losartan. CODE STATUS: Full code. Advance diet to mechanical soft. Lovenox for DVT prophylaxis as per orthopedics. Protonix OPD prophylaxis Attestations Medical Necessity Statement*: Requires further hospitalization for postoperative care for ORIF Time Spent in Patient Care: Greater than 35 minutes Coding Level of Care Code Acute Cost Reduction Engineer for [facility] Fwd Diagnoses Intertrochanteric fracture of left femur S72.142A Epilepsy G40.909 Intellectual disability F79 Hypertension I10 Type 2 diabetes mellitus E11.9
--- NOTE | 2022-07-28 14:50 | P.PN_ITS ---
Subjective Subjective: Patient seen and examined. Patient resting comfortably in chair. Given intellectual disability limits examination and history. When asked about her pain controlled she says yes. No other issues overnight. We will work with PT/OT Vitals/I&O/Wt Last Vital Signs Temp 97.6 F 07/28/22 10:58 Pulse 80 07/28/22 10:58 Resp 17 07/28/22 10:58 BP 131/72 07/28/22 10:58 Pulse Ox 93 07/28/22 10:58 O2 Del Method 07/28/22 10:58 O2 Flow Rate 3 07/28/22 08:19 07/27/22 07/28/22 07/28/22 22:59 06:59 14:59 Intake Total 1417.5 / 2385.0 50 / 2435.0 1022.5 / 1022.5 Output Total 800 / 800 400 / 1200 Balance 617.5 / 1585.0 -350 / 1235.0 1022.5 / 1022.5 Physical Exam Narrative: Dressing to the left hip clean dry and intact no saturation. She is able to wiggle her toes she will plantarflex and dorsiflex her ankle. She will straighten her leg. She nods and says yes to sensation being intact to light touch. Distal pulses palpable. Normal postoperative swelling and tenderness from the left hip. Urinary Catheter Management: Marshall: Cath Placed During This Visit: yes Reason for Continuing Indwelling Catheter: Acute Urinary Retention or Obstruction Urinary Catheter Date of Insertion: 07/26/22 Data 07/28/22 01:56 07/28/22 01:56 Xray Ortho: My impression: X-rays of the left hip reviewed show stable open reduction internal fixation with cephalomedullary nail stable hardware fixation and reduction of left intertrochanteric femur fracture. A&P Assessment and plan (1) Intellectual disability: (2) Intertrochanteric fracture of left femur: Plan Weightbearing as tolerated left lower extremity Range of motion to the hip knee foot and ankle as tolerated Change dressing as needed if becomes saturated PT/OT Internal medicine is primary Lovenox for DVT prophylaxis Pain control Orthopedics will continue to monitor A.m. labs reviewed, imaging reviewed Attestations Medical Necessity Statement*: Left hip fracture requiring hospitalization and surgical intervention Coding Level of Care Code Acute Healthcare Project Manager for Daily Fwd Diagnoses Intellectual disability F79 Intertrochanteric fracture of left femur S72.142A Time Spent (min) 25
[2022-07-28 15:54] LABS: Hematocrit 26.5 % (37.0-47.0); Hemoglobin 8.4 g/dL (11.5-15.3)
[2022-07-28 17:06] LABS: Glucose Point of Care 390 mg/dL (70-110)
[2022-07-28] MEDS: carBAMazepine XR (12 HR) 200 mg Tablet 400 MG PO (17:07)
[2022-07-28] MEDS: escitalopram 10 mg Tablet 20 MG PO (17:08)
[2022-07-28] MEDS: folic acid 1 mg Tablet PO (17:09)
[2022-07-28] MEDS: aspirin 325 mg EC Tablet PO (17:30)
[2022-07-28] MEDS: ziprasidone hcl 40 mg Capsule 80 MG PO (20:13)
[2022-07-28] MEDS: atorvastatin 40 mg Tablet 20 MG PO (20:14)
[2022-07-28] MEDS: gabapentin 300 mg Capsule PO (20:14)
[2022-07-28 21:17] LABS: Glucose Point of Care 103 mg/dL (70-110)
[2022-07-29] VITALS: BP 161/93; PULSE 103; RESP 20; TEMP 36.6; O2SAT 98
[2022-07-29] MEDS: HYDROcodone-acetaminophen 5-325 mg Tablet 1 TAB PO ×2 (02:28→09:51)
[2022-07-29 04:00] VITALS: BP 155/89; PULSE 101; RESP 20; TEMP 36.9; O2SAT 97
[2022-07-29 05:54] LABS: Basophils % 0.3 %; Eosinophils # 0.5 10^3/uL (0.0-0.8); Eosinophils % 8.3 %; Hematocrit 26.4 % (37.0-47.0); Hemoglobin 8.5 g/dL (11.5-15.3); Lymphocytes # 1.1 10^3/uL (0.8-4.8); Lymphocytes % 18.1 %; Mean Corpuscular HGB Conc 32.2 g/dL (30.0-36.0); Mean Corpuscular Hemoglobin 30.6 pg (28.0-34.0); Mean Platelet Volume 10.1 fL (7.4-10.4); Monocytes # 0.4 10^3/uL (0.2-0.9); Neutrophils # 3.89 10^3/uL (1.8-7.7); Nucleated Red Blood Cells % 0 %; Platelet Count 208 10^3/cmm (130-400); Red Blood Count 2.78 10^6/uL (4.1-5.3); Red Cell Distribution Width 12.9 % (12.1-15.1); White Blood Count 6.3 10^3/uL (4.0-10.0)
[2022-07-29] MEDS: enoxaparin 30 mg/0.3 mL Syringe SUBCUT (06:17)
[2022-07-29 06:18] LABS: Alanine Aminotransferase 10 U/L (0-33); Albumin Level 3.1 g/dL (3.5-5.2); Alkaline Phosphatase 67 U/L (35-105); Anion Gap 10.2 (5-19); Aspartate Amino Transferase 10 U/L (0-32); Blood Urea Nitrogen 17 mg/dL (6-20); Calcium 8.5 mg/dL (8.5-10.5); Carbon Dioxide 25 mmol/L (22-29); Chloride 104 mmol/L (98-107); Globulin 2.3 g/dL (1.3-4.6); Glomerular Filtration Rate 51.4 mL/min (90-130); Glucose 209 mg/dL (65-115); Osmolality Calculated 288 mOsm/kg (285-295); Potassium 4.2 mmol/L (3.5-5.1); Sodium 135 mmol/L (136-145); Total Bilirubin 0.2 mg/dL (0.15-1.2); Total Protein 5.4 g/dL (6.6-8.7)
[2022-07-29] MEDS: isosorbide mononitrate ER 60 mg Tablet 90 MG PO (06:18)
[2022-07-29] MEDS: levothyroxine 100 mcg Tablet PO (06:18)
[2022-07-29 06:20] LABS: Estmated Average Glucose 123; Hemoglobin A1C 5.9 % (4.0-6.0)
[2022-07-29 06:26] LABS: Glucose Point of Care 223 mg/dL (70-110)
[2022-07-29 06:40] LABS: Neutrophils % 67.3 %; Slide Review Slide Review Perform
[2022-07-29 08:00] VITALS: BP 146/96; PULSE 95; PULSE 97; RESP 17; RESP 18; TEMP 37.1; O2SAT 97; O2SAT 98
[2022-07-29] MEDS: folic acid 1 mg Tablet PO (09:48)
[2022-07-29] MEDS: escitalopram 10 mg Tablet 20 MG PO (09:48)
[2022-07-29] MEDS: sucralfate 1 gm Tablet PO (09:48)
[2022-07-29] MEDS: gabapentin 100 mg Capsule 200 MG PO ×2 (09:48→12:45)
[2022-07-29] MEDS: amlodipine 10 mg Tablet PO (09:49)
[2022-07-29] MEDS: hyDRALAzine 10 mg Tablet PO (09:49)
[2022-07-29] MEDS: aspirin 325 mg EC Tablet PO (09:49)
[2022-07-29] MEDS: iron polysaccharide complex 150 mg Capsule PO (09:49)
[2022-07-29] MEDS: calcium carb-vit d 600mg/400unit 1 Tablet 1 EACH PO (09:49)
[2022-07-29] MEDS: multivitamin therapeutic Tablet 1 TAB PO (09:49)
[2022-07-29] MEDS: insulin lispro 100 unit/1 mL SUBCUT ×2 (09:50→12:44)
[2022-07-29] MEDS: sennosides-docusate Tablet 2 TAB PO (09:50)
[2022-07-29] MEDS: cholecalciferol (vitamin D3) 1,000 unit Tablet 1000 UNIT PO (09:50)
--- NOTE | 2022-07-29 09:59 | P.PN_ITS ---
Subjective Subjective: Patient seen and examined this morning. Patient doing well. No issues overnight. Stable for discharge from Ortho standpoint. Continue to work with therapy. History and examination limited secondary to patient's baseline mental status. Vitals/I&O/Wt Last Vital Signs Temp 98.8 F 07/29/22 08:00 Pulse 97 07/29/22 08:00 Resp 17 07/29/22 08:00 BP 146/96 07/29/22 08:00 Pulse Ox 97 07/29/22 08:00 O2 Del Method 07/29/22 08:00 O2 Flow Rate 3 07/29/22 08:00 07/28/22 07/29/22 07/29/22 22:59 06:59 14:59 Intake Total 1160 / 2182.5 120 / 2302.5 Output Total 1250 / 1250 Balance -90 / 932.5 120 / 1052.5 Weight last 48 hrs Weight 149 lb 12.8 oz Physical Exam Narrative: Dressing to the left hip clean dry and intact no saturation. She is able to wiggle her toes she will plantarflex and dorsiflex her ankle. She will straighten her leg. She nods and says yes to sensation being intact to light touch. Distal pulses palpable. Normal postoperative swelling and tenderness from the left hip. Urinary Catheter Management: Marshall: Cath Placed During This Visit: yes, but has since been removed by the nurse Reason for Continuing Indwelling Catheter: Decision to DC Catheter Urinary Catheter Date of Insertion: 07/26/22 Date Urinary Catheter Removed: 07/28/22 Time Urinary Catheter Discontinued: 20:22 Data 07/29/22 05:03 07/29/22 05:03 Micro: Microbiology 07/27/22 13:00 Bacterial Antigens - Final Urine Kidney A&P Assessment and plan (1) Intertrochanteric fracture of left femur: (2) Intellectual disability: Plan Weightbearing as tolerated left lower extremity Range of motion to the hip knee foot and ankle as tolerated Change dressing as needed if becomes saturated PT/OT Internal medicine is primary Lovenox for DVT prophylaxis Pain control A.m. labs reviewed Patient stable for discharge from orthopedic standpoint. Thank for allow me to partake in the care of this patient. If there is any questions pertaining to her care or discharge instructions feel free to contact myself. Orthopedic will sign off patient at this time and follow peripherally. Appropriate discharge instructions pain medication DVT prophylaxis in patient's chart. She will see me in the office in 2 weeks. Attestations Medical Necessity Statement*: Left hip fracture requiring hospitalization and surgical intervention Coding Level of Care Code Acute Transitional Kindergarten Teacher for Daily Rodriguez Diagnoses Intertrochanteric fracture of left femur S72.142A Intellectual disability F79 Time Spent (min) 25
[2022-07-29] MEDS: pantoprazole DR 40 mg Tablet PO (10:11)
[2022-07-29] MEDS: mupirocin oint 22 gm 1 APPLIC NASAL (10:12)
[2022-07-29] MEDS: chlorhexidine gluconate 0.12% Btl 473 mL 30 ML MUCOUS MEM ×2 (10:16→14:05)
[2022-07-29 11:11] LABS: Glucose Point of Care 276 mg/dL (70-110)
[2022-07-29 12:00] VITALS: BP 116/79; PULSE 93; RESP 16; TEMP 36.4; O2SAT 96
[2022-07-29] MEDS: carBAMazepine XR (12 HR) 200 mg Tablet 400 MG PO (12:47)
[2022-07-29 15:50] VITALS: BP 116/79; PULSE 93; RESP 16; TEMP 36.4; O2SAT 96
--- NOTE | 2022-07-29 19:22 | PM.DCS ---
Discharge Providers Date of Admission: 07/27/22 00:20 Date of Discharge: July 29, 2022 Attending Provider at Admission: Cathy Ayala MD Attending Provider at Discharge: Carrillo Ayers Diagnoses at Discharge Discharge Diagnosis (1) Intertrochanteric fracture of left femur: Status: Acute (2) Intellectual disability: Status: Acute Reason for Visit Reason for Visit: L hip fx Hospital Course Hospital Course 56-year-old lady with intellectual disability, skilled nursing resident, history of epilepsy was transferred to the hospital from [facility] for hip fracture sustained with a fall. Head CT without evidence of intracranial hemorrhage or mass-effect. Mild soft tissue edema overlying left lateral orbit. Mild small vessel changes with moderate parenchymal volume loss. Paranasal sinusitis. Venous duplex without DVT. Chest x-ray with tortuosity and ectasia of the thoracic aorta with mild aneurysmal dilation of ascending aorta/arch. Heart is mildly enlarged. On presentation also with mild ROSALEE versus CKD, creatinine is 1.2. We will have any recent priors since thousand . Losartan was held. She underwent ORIF on 11/25. She did well subsequently. Renal function remained steady, with creatinine improved to 1.1 today. Gastroparesis resumed except for losartan which was held at discharge. Blood pressures and renal functions can be reassessed. A1c noted 5.8. Discharge she can weight-bear as tolerated on LLE. ROM through the hip, knee, foot and ankle as tolerated. Change dressing as needed if becomes saturated. PT, OT. Lovenox for DVT prophylaxis. Pain control. Follow-up with orthopedics in office in 2 weeks. Please confirm carbamazepine dose. Prescription noted for 200 mg ER 3 times daily. Please confirm whether this is the intended dose. Please follow-up renal function at next visit due to acute kidney injury noted during hospitalization. Physical Exam Const: COMMON NORMALS: alert GENERAL APPEARANCE: cooperative and other (Sitting up in chair.) ORIENTATION/CONSCIOUSNESS: Yes awake HENMT: COMMON NORMALS: oropharynx normal OTHER: Left-sided facial/periorbital bruising. Neck/C-Spine: COMMON NORMALS: no JVD Resp: COMMON NORMALS: normal respiratory effort and clear to auscultation bilaterally AUSCULTATION: clear to auscultation bilaterally Cardio: COMMON NORMALS: no JVD, regular rhythm, S1 normal heart sound present, S2 normal heart sound present and No murmurs present (Cardio) RHYTHM: regular rhythm HEART SOUNDS: S1 normal heart sound present and S2 normal heart sound present GI: COMMON NORMALS: Normal to inspection, nondistended, normoactive bowel sounds present, Soft to palpation and non-tender PALPATION: Yes Soft to palpation Extremity: COMMON NORMALS: no joint enlargement and no pedal edema OTHER: Left lateral thigh dressing intact. No bleeding, no surrounding bruising. No swelling. Neuro: COMMON NORMALS: moves all extremities SENSORIUM/ORIENTATION: Yes alert Skin: COMMON NORMALS: no rashes or lesions noted GENERAL SKIN EXAM: no rashes or lesions noted Urinary Catheter Management: Marshall: Cath Placed During This Visit: yes, but has since been removed by the nurse Reason for Continuing Indwelling Catheter: Decision to DC Catheter Urinary Catheter Date of Insertion: 07/26/22 Date Urinary Catheter Removed: 07/28/22 Time Urinary Catheter Discontinued: 20:22 Discharge Data Studies Completed and Pending Completed Studies During Hospitalization Category Date Time Status CT head wo con* [id number] Routine Cat Scan 07/27/22 10:14 Completed XR chest 1V portable [id number] Routine Exams 07/27/22 09:43 Completed XR femur LT min 2V* [id number] Routine Exams 07/27/22 07:55 Completed XR hip LT 1V wo/w pel [id number] Routine Exams 07/27/22 17:16 Completed XR hip LT 2-3V wo/w pel* [id number] Routine Exams 07/28/22 07:00 [place] [id number] Urgent Ultrasound 07/27/22 09:44 Completed Radiology Impressions Femur X-Ray 07/27/22 07:55 IMPRESSION: Comminuted intertrochanteric fracture. Chest X-Ray 07/27/22 09:43 IMPRESSION: Tortuosity and ectasia of the thoracic aorta as above. No acute lung abnormality. Head CT 07/27/22 10:14 IMPRESSION: 1. No evidence of intracranial hemorrhage or mass effect. 2. Mild small vessel changes with moderate parenchymal volume loss. 3. Mild soft tissue edema overlying the LEFT lateral orbit. 4. Paranasal sinusitis. 5. No acute intracranial findings. Hip X-Ray 07/27/22 17:16 IMPRESSION: Postoperative left hip fracture with fixation and no abnormality. Hip/Pelvis X-Ray 07/28/22 07:00 IMPRESSION: Postsurgical changes of the hip status post left proximal femoral dynamic hip screw fixation, as noted above, as noted above. Laboratory Results WBC 6.3 10^3/uL (4.0-10.0) 07/29/22 05:03 RBC 2.78 10^6/uL (4.1-5.3) L 07/29/22 05:03 Hgb 8.5 g/dL (11.5-15.3) L 07/29/22 05:03 Hct 26.4 % (37.0-47.0) L 07/29/22 05:03 MCV 95.0 fl (81-99) 07/29/22 05:03 MCH 30.6 pg (28.0-34.0) 07/29/22 05:03 MCHC 32.2 g/dL (30.0-36.0) 07/29/22 05:03 RDW 12.9 % (12.1-15.1) 07/29/22 05:03 Plt Count 208 10^3/cmm (130-400) 07/29/22 05:03 MPV 10.1 fL (7.4-10.4) 07/29/22 05:03 Neut % (Auto) 67.3 % 07/29/22 05:03 Lymph % (Auto) 18.1 % 07/29/22 05:03 [place] % (Auto) 6.0 % 07/29/22 05:03 Eos % (Auto) 8.3 % 07/29/22 05:03 Baso % (Auto) 0.3 % 07/29/22 05:03 Neut # (Auto) 3.89 10^3/uL (1.8-7.7) 07/29/22 05:03 Lymph # (Auto) 1.1 10^3/uL (0.8-4.8) 07/29/22 05:03 [place] # (Auto) 0.4 10^3/uL (0.2-0.9) 07/29/22 05:03 Eos # (Auto) 0.5 10^3/uL (0.0-0.8) 07/29/22 05:03 Baso # (Auto) 0.0 10^3/uL (0.0-0.1) 07/29/22 05:03 Nucleated RBC % (auto) 0 % 07/29/22 05:03 Nucleated RBCs # 0.0 /100WBC 07/29/22 05:03 D-Dimer 12.23 ug/mIFEU (0-0.59) H 07/27/22 07:13 Sodium 135 mmol/L (136-145) L 07/29/22 05:03 Potassium 4.2 mmol/L (3.5-5.1) 07/29/22 05:03 Chloride 104 mmol/L (98-107) 07/29/22 05:03 Carbon Dioxide 25 mmol/L (22-29) 07/29/22 05:03 Anion Gap 10.2 (5-19) 07/29/22 05:03 BUN 17 mg/dL (6-20) 07/29/22 05:03 Creatinine 1.1 mg/dL (0.5-0.9) H 07/29/22 05:03 GFR Calculation 51.4 mL/min (90-130) L 07/29/22 05:03 Glucose 209 mg/dL (65-115) H 07/29/22 05:03 POC Glucose 276 mg/dL (70-110) H 07/29/22 11:01 Estimat Average Glucose 123 07/29/22 05:03 Hemoglobin A1c 5.9 % (4.0-6.0) 07/29/22 05:03 Calculated Osmolality 288 mOsm/kg (285-295) 07/29/22 05:03 Calcium 8.5 mg/dL (8.5-10.5) 07/29/22 05:03 Magnesium 1.7 mg/dL (1.7-2.3) 07/27/22 05:02 Iron 35 ug/dL (37-145) L 07/27/22 05:02 TIBC 197 mcg/dl 07/27/22 05:02 % Saturation 17.7 % (20-50) L 07/27/22 05:02 Unsat Iron Binding 162 ug/dL (112-347) 07/27/22 05:02 Total Bilirubin 0.2 mg/dL (0.15-1.2) 07/29/22 05:03 AST 10 U/L (0-32) 07/29/22 05:03 ALT 10 U/L (0-33) 07/29/22 05:03 Alkaline Phosphatase 67 U/L (35-105) 07/29/22 05:03 C-Reactive Protein 32.1 mg/L (0.0-4.9) H 07/27/22 05:02 Total Protein 5.4 g/dL (6.6-8.7) L 07/29/22 05:03 Albumin 3.1 g/dL (3.5-5.2) L 07/29/22 05:03 Globulin 2.3 g/dL (1.3-4.6) 07/29/22 05:03 Triglycerides 181 mg/dL (0-150) H 07/28/22 01:56 Cholesterol 118 mg/dL (0-200) 07/28/22 01:56 LDL Cholesterol, Calc 57 mg/dL (50-129) 07/28/22 01:56 Total VLDL Cholesterol 36 mg/dL (0-30) H 07/28/22 01:56 HDL Cholesterol 25 mg/dL (60-100) L 07/28/22 01:56 Cholesterol/HDL Ratio 4.72 mg/dL (0.0-4.40) H 07/28/22 01:56 Vitamin B12 463 pg/mL (232-1245) 07/27/22 05:02 Folate > 20.0 ng/mL (4.8-37.3) 07/27/22 14:52 TSH 4.92 uIU/mL (0.27-4.20) H 07/27/22 05:02 Free T4 1.20 ng/dL (0.82-1.77) 07/28/22 01:56 Free T3 1.7 PG/ML (2.0-4.4) L 07/28/22 01:56 Urine Color Yellow (Yellow) 07/27/22 13:00 Urine Appearance Clear (CLEAR) 07/27/22 13:00 Urine pH 7 (5-7) 07/27/22 13:00 Ur Specific [place] 1.010 (1.005-1.030) 07/27/22 13:00 Urine Protein 1+ (Negative) H 07/27/22 13:00 Urine Glucose (UA) 1+ (Normal) H 07/27/22 13:00 Urine Ketones Negative (Negative) 07/27/22 13:00 Urine Blood Neg (Negative) 07/27/22 13:00 Urine Nitrate Negative (Negative) 07/27/22 13:00 Urine Bilirubin Neg (Negative) 07/27/22 13:00 Urine Urobilinogen Neg mg/dL (Negative) 07/27/22 13:00 Ur Leukocyte Esterase Negative (Negative) 07/27/22 13:00 Urine RBC None /hpf (0-2) 07/27/22 13:00 Urine WBC None /hpf (0-5) 07/27/22 13:00 Ur Squamous Epith Cells None /hpf (0-5) 07/27/22 13:00 Amorphous Sediment Trace /hpf 07/27/22 13:00 Urine Bacteria None /hpf (NONE) 07/27/22 13:00 Ur Random Sodium 158 mmol/L 07/27/22 13:00 Ur Random Potassium 26 mmol/L 07/27/22 13:00 Ur Random Chloride 153 mmol/L 07/27/22 13:00 Vitals Last Vital Signs Temp 97.6 F 07/29/22 15:50 Pulse 93 07/29/22 15:50 Resp 16 07/29/22 15:50 BP 116/79 07/29/22 15:50 Pulse Ox 96 07/29/22 15:50 O2 Del Method 07/29/22 12:00 O2 Flow Rate 3 07/29/22 12:00 Discharge Plan Discharge Patient Disposition: Home Condition: Stable Prescriptions: New hydrocodone-acetaminophen 5-325 mg Tablet 1 tab PO Q6H PRN (Reason: Moderate Pain) 7 Days Qty: 28 0RF enoxaparin 30 mg/0.3 mL Syringe 30 mg SUBCUT Q24H 35 Days Qty: 10.5 0RF calcium carbonate-vitamin D3 600 mg-10 mcg (400 unit) Tablet 1 ea PO BID 30 Days Qty: 60 0RF Colace 100 mg capsule 100 mg PO DAILY 14 Days Qty: 14 0RF ondansetron 4 mg tablet,disintegrating 4 mg PO DAILY 5 Days Qty: 5 0RF Continued ziprasidone HCl 80 mg Capsule 80 mg PO BEDTIME@20 silver sulfadiazine [SSD] 1 % Cream 1 applic TOPICAL DAILY PRN (Reason: Skin wounds and sores) Rx Instructions: apply a 1.5 mm thickness sennosides [Senokot] 8.6 mg Tablet 17.2 mg PO BEDTIME@20 sennosides [Senokot] 8.6 mg Tablet 8.6 mg PO DAILY PRN (Reason: Constipation) clonidine HCl 0.1 mg Tablet 0.1 mg PO BID PRN (Reason: diastolic greater than 100) acetaminophen [Pain Reliever (acetaminophen)] 325 mg Tablet 325 mg PO Q4H PRN (Reason: pain or fever) atorvastatin 20 mg Tablet 20 mg PO DAILY@20 trazodone 50 mg Tablet 50 mg PO BEDTIME@20 oxybutynin chloride 10 mg Tablet Extended Release 24hr 10 mg PO DAILY@20 sucralfate 1 gram Tablet 1 g PO QID Rx Instructions: @08:00,12:00,17:00,20:00 omeprazole 40 mg Capsule,Delayed Release(Dr/Ec) 40 mg PO DAILY@08 levothyroxine 100 mcg Tablet 100 mcg PO DAILY@07 isosorbide mononitrate 60 mg Tablet Extended Release 24 Hr 90 mg PO DAILY@07 aspirin 325 mg Tablet,Delayed Release (Dr/Ec) 325 mg PO DAILY@08 amlodipine 10 mg Tablet 10 mg PO DAILY@08 mirtazapine 30 mg Tablet 30 mg PO BEDTIME@20 ferrous sulfate 325 mg (65 mg iron) Tablet 325 mg PO BID@08,20 gabapentin 300 mg Capsule 300 mg PO BEDTIME@20 folic acid 1 mg Tablet 1 mg PO DAILY@08 gabapentin 100 mg Capsule 200 mg PO BID@08,12 polyethylene glycol 3350 17 gram/dose Powder 17 g PO DAILY@08 fluticasone propionate 50 mcg/actuation [place],Suspension 2 spray INTRANASAL DAILY@08 Rx Instructions: administer into each nostril escitalopram oxalate 20 mg Tablet 20 mg PO DAILY@08 metformin 750 mg Tablet Extended Release 24 Hr 750 mg PO BID@08,20 levocetirizine 5 mg Tablet 5 mg PO DAILY@20 icosapent ethyl [Vascepa] 1 gram Capsule 2 g PO BID@08,20 azithromycin 500 mg tablet 500 mg PO DAILY@08 Rx Instructions: begin 07/24/22 end 07/28/22 carbamazepine 200 mg Capsule, Er Multiphase 12 Hr 200 mg PO BID@08,20 carbamazepine 200 mg Capsule, Er Multiphase 12 Hr 400 mg PO DAILY@12 cefdinir 300 mg capsule 300 mg PO BID@08,20 Rx Instructions: begin 07/24/22 end 07/30/22 epinephrine 0.3 mg/0.3 mL Auto-Injector 0.3 mg IM Q4H PRN (Reason: insect stings) Discontinued losartan 100 mg Tablet 100 mg PO DAILY@08 carbamazepine 200 mg capsule, ER multiphase 12 hr PO Discharge Orders: Discharge Order (Routine); Ordered 07/29/22 Ordered By: Carrillo Ayers Referrals: Louie Porter DO [Physician] - 2 weeks (Please call on Sunday to schedule a follow-up appointment to be seen in two weeks.) Royce Quevedo MD [Referring] - 4-7 days (Please call on Sunday to schedule an appointment to be seen in 4-7 days.) Discharge Diet: Advance as tolerated and Diabetic Discharge Activity: Increase activity as tolerated Patient Instructions: Hydrocodone/Acetaminophen (By mouth) (Vicodin, [place], Lortab), Laxative, Stool Softeners (By mouth) (Doculax, Colace, Colace Clear, DSS), Ondansetron (By mouth) (Zofran, Zofran ODT, Zuplenz), Enoxaparin (By injection) (Lovenox), Calcium/Vitamin D Supplement (By mouth) (Arik-Citrate, Arik-Citrate..., Opioid Safety Activity Restrictions/Additional Instructions: Orthopedic discharge instructions: Patient may weight-bear as tolerated to the left lower extremity Encourage range of motion of the left lower extremity foot ankle knee and hip Ice and elevate extremities as needed for pain and swelling Take pain medication prescribed Take DVT prophylaxis?Lovenox (blood thinners) for blood clot prevention as prescribed Take antinausea medication as needed Supplement with Citracal/vitamin D Follow-up with Dr. Porter in the office in 2 weeks Change left hip incision as needed if becomes saturated, otherwise Silverlon dressing may stay on in place Contact the office for any questions or concerns Please check carbamazepine dose with neurology. Prescription confirmed for 200 mg ER 3 times daily. Please confirm whether this is the correct dose. Please follow-up renal function at next visit due to acute kidney injury noted during hospitalization. Losartan for now held until kidney function confirm stable. Continue monitoring blood pressure and blood glucose at least 3 times daily. Continue to optimize Chronic conditions. Discharge Attestations Time Spent in Discharge Care*: greater than 30 min Quality Metrics Clinical Quality Measures [ No reported AMI, CVA or VTE this stay] Coding Level of Care Code Acute Chg FW DC note Diagnoses Intertrochanteric fracture of left femur S72.142A Intellectual disability F79
--- NOTE | 2022-07-30 11:26 | PC.NURSE ---
Lan from patient's skilled nursing called and stated that they are unable to do lovenox injections and asked if there was another medication the patient could take. This nurse contacted Dr. Porter who gave telephone orders for Eliquis 2.5mg PO BID for 35 days. This prescription was called into [facility] pharmacy in [place], [place]. This nurse called Lan to inform him of the change and that the medication was called in to pharmacy of choice.
== END 2022-07-29 14:55 | disposition home or self-care (01) | DRG 481 ==
PROVIDERS: Student in an Organized Health Care Education/Training Program; Admitting Provider Internal Medicine; Visit Provider Internal Medicine
PROC: 0QS736Z Reposition Left Upper Femur with Intramedullary Internal Fixation Device, Percutaneous Approach (ICD-10-PCS; CPT 27245; principal; 2022-07-27 16:00)
DX: S72.142A Displaced intertrochanteric fracture of left femur, initial encounter for closed fracture (principal); N17.9 Acute kidney failure, unspecified; W19.XXXA Unspecified fall, initial encounter; Z87.01 Personal history of pneumonia (recurrent); F79 Unspecified intellectual disabilities; F31.9 Bipolar disorder, unspecified; E11.22 Type 2 diabetes mellitus with diabetic chronic kidney disease; N18.9 Chronic kidney disease, unspecified; E03.9 Hypothyroidism, unspecified; G40.909 Epilepsy, unspecified, not intractable, without status epilepticus; K21.9 Gastro-esophageal reflux disease without esophagitis; L40.9 Psoriasis, unspecified; M06.9 Rheumatoid arthritis, unspecified; Z88.2 Allergy status to sulfonamides; Z88.1 Allergy status to other antibiotic agents; Z91.030 Bee allergy status; Z79.84 Long term (current) use of oral hypoglycemic drugs
CPT/HCPCS: 36415; 36416; 51702; 70450; 71045; 73501; 73502; 73552; 76000; 80048; 80053; 80061; 81001; 82436; 82607; 82746; 82962; 83036; 83540; 83550; 83735; 84133; 84300; 84439; 84443; 84481; 85014; 85018; 85025; 85378; 86140; 86403; 93970; 96372; 97110; 97161; 97166; 97530; C1713; J0360; J1100; J1170; J1200; J1650; J1815; J2405; J2704; J3010; J3490; J7030

== ENCOUNTER → 2022-08-16 16:45 | Outpatient (BNVA) | payer MEDICARE, MEDICAID, SELFPAY | PROVIDERS: Visit Provider Student in an Organized Health Care Education/Training Program | DX: S72.142A Displaced intertrochanteric fracture of left femur, initial encounter for closed fracture (principal); T81.49XA Infection following a procedure, other surgical site, initial encounter; X58.XXXA Exposure to other specified factors, initial encounter | CPT/HCPCS: 73502; 99024 ==

== ENCOUNTER → 2022-09-21 14:16 | Outpatient (BNVA) | payer MEDICARE, MEDICAID, SELFPAY | PROVIDERS: Visit Provider Student in an Organized Health Care Education/Training Program | DX: S72.142A Displaced intertrochanteric fracture of left femur, initial encounter for closed fracture (principal); X58.XXXA Exposure to other specified factors, initial encounter | CPT/HCPCS: 73502; 99024 ==

== ENCOUNTER → 2023-01-01 10:01 | Outpatient (BNVA) | payer MEDICARE, MEDICAID, SELFPAY | PROVIDERS: Visit Provider Student in an Organized Health Care Education/Training Program | DX: S72.145D Nondisplaced intertrochanteric fracture of left femur, subsequent encounter for closed fracture with routine healing (principal); X58.XXXD Exposure to other specified factors, subsequent encounter | CPT/HCPCS: 73502; 99213 ==